=== PATIENT | male | born 1995 | race Two or more races ===

== ENCOUNTER 2017-10-26 10:51 | Emergency (ER) | payer SELFPAY ==
[2017-10-26] MEDS ORDERED: Sodium Chloride 0.9% 10 ML Syringe FLUSH PRN (11:00)
[2017-10-26] MEDS ORDERED: Morphine 4 MG/ML Syringe IVPUSH ONE (11:00)
[2017-10-26] MEDS ORDERED: Metoclopramide 10 MG/2 ML SDV IVPUSH ONE (11:00)
--- NOTE | 2017-10-26 11:06 | EDM.PDOC ---
ED HPI GENERAL MEDICAL PROBLEM - General Chief Complaint: Lower Extremity Injury/Pain Stated Complaint: LEFT FOOT INJURY Time Seen by Provider: 10/26/17 10:57 Source of Information: Reports: Other (co-worker) History Limitations: Reports: Language Barrier - History of Present Illness INITIAL COMMENTS - FREE TEXT/NARRATIVE: 22-year-old male presents for evaluation and treatment of injury to the bilateral feet. Reportedly the patient dropped a 4000 piece of farm equipment on his foot. Primarily complaining of pain to the left foot. Patient is from [place] does not speak much Bengali, language barrier present. Does not believe he's had a tetanus the last 10 years. Aside from the pain to the left foot he also has a nail avulsion to the right great toe. Denies any pain to the right foot. Reports good sensation. Location: Reports: Lower Extremity, Left, Lower Extremity, Right Left Feet Pain Score (Numeric/FACES): 9 - Related Data Allergies Allergy/AdvReac Type Severity Reaction Status Date / Time No Known Allergies Allergy Verified 10/26/17 11:04 Home Meds: Home Meds Acetaminophen/oxyCODONE [Percocet 325-5 MG] 1 tab PO Q6HR PRN #20 tab 10/26/17 [ Rx] Review of Systems - Review of Systems Review Of Systems: See Below Musculoskeletal: Reports: Foot Pain (left), Joint Swelling (left foot) Skin: Reports: Wound (right great toe) Neurological: Denies: Numbness, Tingling ED EXAM, GENERAL - Physical Exam Exam: See Below Exam Limited By: No Limitations General Appearance: Alert, WD/WN, Moderate Distress, Thin Respiratory/Chest: No Respiratory Distress Cardiovascular: Normal Peripheral Pulses, Regular Rate, Rhythm Peripheral Pulses: 2+: Posterior Tibial (L), Dorsalis Pedis (L), 3+: Posterior Tibial (R), Dorsalis Pedis (R) Extremities: Limited Range of Motion (ROM testing deferred to pain), Other ( significant swelling to the left foot, significant tenderness to palpation to the left foot; no pain with palpation of the right foot, right great toenail avulsion) Neurological: Alert, Oriented, Normal Cognition Psychiatric: Normal Affect, Normal Mood Skin Exam: Warm, Dry, Normal Color, Other (right great toe nail avulsion; abrasion to the left dorsal foot) ED TRAUMA EXTREMITY PROCEDURES - Splinting Left Lower Extremity Splint Site: left foot Pre-Procedure NV Status: Normal Post-Procedure NV Status: Normal Splint Material: Fiberglass Splint Design: Posterior Applied & Form Fitted By: Provider, Ventilator Specialist (LEONARD Vo) Provider Post-Splint Application NV Check: NV Status Normal, Good Position Complications: No - Additional/Other Procedure(s) Other (Free Text) Procedure(s): procedure: Right toenail removal indication: Trauma to right great toenail with avulsion verbal consent obtained procedure preformed by Britney Kerr PA-C Area was cleaned with sterile water and chlorahexadine. Digital block preformed with total of 7cc 1% lidocaine without epi. Right great toenail removed without complication. Patient tolerated well. Bacitracin applied, wrapped with a nonstick pad and Coban. Course - Vital Signs Last Recorded V/S: Last Vital Signs Temp 36.1 C 10/26/17 11:01 Pulse 87 10/26/17 11:01 Resp 20 10/26/17 11:01 BP 129/85 10/26/17 11:01 Pulse Ox 100 10/26/17 11:01 - Orders/Labs/Meds Meds: Medications Discontinued Medications Generic Name Dose Route Start Last Admin Trade Name Freq PRN Reason Stop Dose Admin Diphtheria/Tetanus/Acell Pertussis 0.5 ml 10/26/17 11:25 10/26/17 12:23 Adacel IM 10/26/17 11:26 0.5 ml .ONCE ONE Administration Lidocaine HCl 50 ml 10/26/17 13:16 10/26/17 14:40 Xylocaine 1% INJECT 10/26/17 13:17 50 ml ONETIME ONE Administration Metoclopramide HCl 5 mg 10/26/17 11:00 10/26/17 11:07 Reglan IVPUSH 10/26/17 11:01 5 mg ONETIME ONE Administration Morphine Sulfate 4 mg 10/26/17 11:00 10/26/17 11:07 Morphine IVPUSH 10/26/17 11:01 4 mg ONETIME ONE Administration Sodium Chloride 10 ml 10/26/17 11:00 10/26/17 11:07 Saline Flush FLUSH 10 ml ASDIRECTED PRN Administration Keep Vein Open - Radiology Interpretation Free Text/Narrative:: xray of the right foot shows no acute fractures or dislocations Left foot: Four views of the left foot were obtained. Comparison: No previous study. Fracture identified involving the base of the fifth metatarsal. Small chip fracture is noted off the lateral proximal edge of the cuboid bone. Soft tissue swelling is noted. No additional fracture is definitely seen. Impression: 1. Nondisplaced fracture within the base of the fifth metatarsal. 2. Small chip fracture off the corner cuboid bone laterally. 3. Soft tissue swelling. CT of the left foot without contrast impression per vrad: Nondisplaced intra- articular fracture of the cuboid extending from the central proximal to central distal articular surfaces. Small avulsion of the proximal lateral cubodi at the inferior calcaneocuboid articulation. Nondisplaced intra-articular fracture lateral base of the second metatarsal. Comminuted mildly distracted fractures of the proximal third metatarsal base. Mild the intra-articular (distal articulation) displaced fractures of the lateral cuneiform. Tiny dorsal lateral avulsions of the bases of the third and fourth metatarsals. Nondisplaced fractures of the base of the fifth metatarsal ("Granados fracture). No dislocation. - Re-Assessments/Exams Free Text/Narrative Re-Assessment/Exam: 10/26/17 15:18 Initial x-rays showed a Granados fracture of the left foot. Given his mechanism of injury and the amount of swelling is concern for additional fracture. Went ahead CT the foot. CT returned with multiple fractures of the left foot. Discussed the case with Dr. Luong, orthopedics electronic component processor at [facility] in [place]. Recommended a Granados type splint and follow-up with orthopedics next week. Attempted to make an appointment with Dr. Márquez in [place], however, due to the language barrier, They will contact him. His tetanus has been updated. Right toenail was removed by an Britney Kerr PA-C. Posterior slab splint applied by LEONARD Vo and myself. The patient tolerated these procedures well. There were no complications. Will discharge home at this time. Departure - Departure Time of Disposition: 15:19 Disposition: Home, Self-Care 01 Condition: Fair Clinical Impression: Nail avulsion, toe, Foot fracture, left - Discharge Information Prescriptions: Acetaminophen/oxyCODONE [Percocet 325-5 MG] 1 tab PO Q6HR PRN #20 tab PRN Reason: Pain Instructions: Cast or Splint Care, Adult Referrals: PCP,None [Primary Care Provider] - Raymond Márquez MD [Ordering Only Provider] - Forms: ED Department Discharge Additional Instructions: Follow-up with [facility] in [place]. Recommend Dr. Raymond Márquez. He will want to see you next week. They will contact you for an appointment. If you do not hear from them by tomorrow afternoon call [phone]. Please let them know that you in the ER for multiple fractures of her left foot and should be seen next week. He was given medication the ER that can affect his ability to drive and operate machinery. Do not drive or operate machinery within 12 hours of taking prescription narcotic pain medication. You may take Percocet 1-2 tabs every 4-6 hours as needed for severe pain. Do not drive or operate machinery within 12 hours of taking Percocet. Percocet can be habit-forming, recommend you take as few of these as needed to control your pain. Ice the foot frequently. ice The foot is much as you able to. Off the foot completely. Use your crutches at all time. When near water wrapped the splint with a bag or Saran wrap. Please return to the ER if your symptoms change or worsen
[2017-10-26] MEDS ORDERED: Diphtheria,Pertussis(Acell),Tetanus Vaccine 0.5 ML SDV IM ONE (11:25)
[2017-10-26] MEDS ORDERED: Lidocaine 1% 50 ML MDV INJECT ONE (13:16)
--- NOTE | 2017-10-27 07:36 | CR ---
CT right foot : Four views of the right foot were obtained. Joint spaces are maintained. No fracture or other bony abnormality is seen. Impression: 1. No abnormality is identified on right foot study. Diagnostic code #1
--- NOTE | 2017-10-27 07:36 | CR ---
Left foot: Four views of the left foot were obtained. Comparison: No previous study. Fracture identified involving the base of the fifth metatarsal. Small chip fracture is noted off the lateral proximal edge of the cuboid bone. Soft tissue swelling is noted. No additional fracture is definitely seen. Impression: 1. Nondisplaced fracture within the base of the fifth metatarsal. 2. Small chip fracture off the corner cuboid bone laterally. 3. Soft tissue swelling. Diagnostic code #3
--- NOTE | 2017-10-30 08:10 | CT ---
CT left foot Technique: Multiple axial sections through the left foot were obtained. Reconstructed coronal and sagittal images were obtained. Comparison: Previous left foot radiographic study performed on the same day (11: 03 AM). Findings: Fracture is identified within the base of the fifth metatarsal. Fracture noted within the body of the cuboid bone as well as a small chip fracture off the lateral cuboid bone. Larger fracture line within the cuboid bone measures about 1.8 mm. Several fractures are seen within the small chip fracture noted off the navicular bone in 2 [address]. Fracture is noted within the third cuneiform bone. Small displaced chip fracture is identified off the base of the second metatarsal. Small fracture identified off the base of the third metatarsal. No foot dislocation is seen. Diffuse soft tissue swelling is present. Impression: 1. Multiple fractures within the mid foot. Greatest displacement is about 1.8 mm. 2. Soft tissue swelling. Diagnostic code #3 I agree with preliminary report issued by [facility] ([facility] report finalized on , 1:42 PM Central Time) LIZETT
== END 2017-10-26 15:50 | disposition home or self-care (01) ==
LOC: JD.ED 10:51
DX: S92.355A Nondisplaced fracture of fifth metatarsal bone, left foot, initial encounter for closed fracture (principal); S92.212A Displaced fracture of cuboid bone of left foot, initial encounter for closed fracture; S91.201A Unspecified open wound of right great toe with damage to nail, initial encounter; W20.8XXA Other cause of strike by thrown, projected or falling object, initial encounter
CPT/HCPCS: 29515; 73630; 73700; 90471; 90715; 96374; 96375; 99284; J2270; J2765; J7050; 11730; 99283-25

== ENCOUNTER → 2017-11-16 | Day surgery (SDC) | payer OTHER ==
[~2017-11-16] MED LIST: Lactated Ringers 1,000 ML IV SCH; Lidocaine 1%/Sod Bicarbonate in NS 8.4% 1 ML Syringe IDERM PRN; Sodium Chloride 0.9% 10 ML Syringe FLUSH PRN
== END ==
LOC: JD.SDS 10:40
PROVIDERS: ATTEND Orthopaedic Surgery
DX: S93.325A Dislocation of tarsometatarsal joint of left foot, initial encounter (principal)
CPT/HCPCS: 36415; 80048; 85025; 87641; J7120

== ENCOUNTER 2017-11-22 06:53 | Day surgery (SDC) | payer OTHER ==
[2017-11-22] MEDS ORDERED: Bupivacaine 0.25% 30 ML SDV ONE (06:59)
[2017-11-22] MEDS ORDERED: fentaNYL 250 MCG/5 ML SDV ONE (07:09)
[2017-11-22] MEDS ORDERED: Lidocaine 1% 4 ML ONE (07:09)
[2017-11-22] MEDS ORDERED: Ondansetron 4 MG/2 ML SDV ONE (07:09)
[2017-11-22] MEDS ORDERED: Midazolam 1 MG/ML 2 ML SDV ONE (07:09)
[2017-11-22] MEDS ORDERED: Propofol 200 MG/20 ML SDV ONE (07:09)
--- NOTE | 2017-11-22 07:22 | PCM.PREANE ---
Preanesthetic Assessment - Anesthesia/Transfusion/Family Hx Anesthesia History: Prior Anesthesia Without Reaction Family History of Anesthesia Reaction: No Transfusion History: No Prior Transfusion(s) - Review of Systems General: No Symptoms Pulmonary: No Symptoms Cardiovascular: No Symptoms Gastrointestinal: No Symptoms Neurological: No Symptoms Other: Reports: None - Physical Assessment NPO Status Date: 11/21/17 NPO Status Time: 20:00 Pulse: 73 O2 Sat by Pulse Oximetry: 97 Respiratory Rate: 16 Blood Pressure: 125/80 Temperature: 98.2 F Height: 5 ft 7 in Weight: 66.6 kg ASA Class: 1 Mental Status: Alert & Oriented x3 Airway Class: Mallampati = 1 Dentition: Reports: Normal Dentition Thyro-Mental Finger Breadths: 3 Mouth Opening Finger Breadths: 3 ROM/Head Extension: Full Lungs: Clear to Auscultation, Normal Respiratory Effort Cardiovascular: Regular Rate, Regular Rhythm - Allergies Allergies/Adverse Reactions: Allergies Allergy/AdvReac Type Severity Reaction Status Date / Time No Known Allergies Allergy Verified 11/21/17 14:28 - Blood Blood Available: No - Acknowledgements Anesthesia Type Planned: General Anesthesia Pt an Appropriate Candidate for the Planned Anesthesia: Yes Alternatives and Risks of Anesthesia Discussed w Pt/Guardian: Yes Pt/Guardian Understands and Agrees with Anesthesia Plan: Yes PreAnesthesia Questionnaire - Past Health History Medical/Surgical History: Denies Medical/Surgical History HEENT History: Reports: None Cardiovascular History: Reports: None Respiratory History: Reports: None Gastrointestinal History: Reports: None Genitourinary History: Reports: None FINISHED CIGAR MAKER History: Reports: None Musculoskeletal History: Reports: None Neurological History: Reports: None Psychiatric History: Reports: None Endocrine/Metabolic History: Reports: None Hematologic History: Reports: None Immunologic History: Reports: None Oncologic (Cancer) History: Reports: None Dermatologic History: Reports: None - Past Surgical History Head Surgeries/Procedures: Reports: None HEENT Surgical History: Reports: Adenoidectomy, Naso-Sinus Surgery, Tonsillectomy Cardiovascular Surgical History: Reports: None Respiratory Surgical History: Reports: None GI Surgical History: Reports: None Female Surgical History: Reports: None Male Surgical History: Reports: None Endocrine Surgical History: Reports: None Neurological Surgical History: Reports: None Musculoskeletal Surgical History: Reports: None Oncologic Surgical History: Reports: None Dermatological Surgical History: Reports: None - SUBSTANCE USE Smoking Status *Q: Former Smoker Tobacco Use Within Last Twelve Months: No Second Hand Smoke Exposure: No Days Per Week of Alcohol Use: 0 Recreational Drug Use History: No - HOME MEDS Home Medications: Home Meds Acetaminophen/oxyCODONE [Percocet 325-5 MG] 1 tab PO Q6HR PRN #20 tab 10/26/17 [ Rx] - CURRENT (IN HOUSE) MEDS Current Meds: Current Medications Lactated Ringer's (Ringers, Lactated) 1,000 mls @ 125 mls/hr IV ASDIRECTED DENTON Lidocaine/Sodium Bicarbonate (Buffered Lidocaine 1% In Ns 8.4%) 0.25 ml IDERM ONETIME PRN PRN Reason: Prior to IV Start Sodium Chloride (Saline Flush) 10 ml FLUSH ASDIRECTED PRN PRN Reason: Keep Vein Open Discontinued Medications Bupivacaine HCl (Marcaine 0.25%) Confirm Administered Dose 30 ml .ROUTE .STK- MED ONE Stop: 11/22/17 07:00 Fentanyl (Sublimaze) Confirm Administered Dose 250 mcg .ROUTE .STK-MED ONE Stop: 11/22/17 07:10 Lidocaine HCl (Xylocaine-Mpf 1%) Confirm Administered Dose 4 mls @ as directed .ROUTE .STK-MED ONE Stop: 11/22/17 07:10 Midazolam HCl (Versed 1 Mg/Ml) Confirm Administered Dose 2 mg .ROUTE .STK-MED ONE Stop: 11/22/17 07:10 Ondansetron HCl (Zofran) Confirm Administered Dose 4 mg .ROUTE .STK-MED ONE Stop: 11/22/17 07:10 Propofol (Diprivan 20 Ml) Confirm Administered Dose 200 mg .ROUTE .STK-MED ONE Stop: 11/22/17 07:10
[2017-11-22] MEDS ORDERED: HYDROmorphone 0.5 MG/0.5 ML Syringe IVPUSH PRN (07:50)
[2017-11-22] MEDS ORDERED: Ondansetron 4 MG/2 ML SDV IVPUSH PRN (07:50)
[2017-11-22] MEDS ORDERED: fentaNYL 100 MCG/2 ML SDV IVPUSH PRN (07:50)
[2017-11-22] MEDS ORDERED: Dexamethasone 4 MG/ML SDV ONE (08:12)
[2017-11-22] MEDS ORDERED: ceFAZolin 1 GM Vial ONE (08:13)
[2017-11-22] MEDS ORDERED: HYDROmorphone 0.5 MG/0.5 ML Syringe ONE ×2 (08:14→09:33)
[2017-11-22] MEDS ORDERED: fentaNYL 100 MCG/2 ML SDV ONE (08:40)
[2017-11-22] MEDS ORDERED: Ketorolac 30 MG/ML SDV ONE (08:57)
[2017-11-22] MEDS ORDERED: Lactated Ringers 1,000 ML ONE (09:00)
--- NOTE | 2017-11-22 09:35 | PCM.POSTAN ---
POST ANESTHESIA ASSESSMENT - MENTAL STATUS Mental Status: Alert, Oriented - VITAL SIGNS Pulse Rate: 111 SaO2: 99 Resp Rate: 12 Blood Pressure: 168/102 - RESPIRATORY Respiratory Status: Respiratory Rate WNL, Airway Patent, O2 Saturation Stable, Supplemental Oxygen - CARDIOVASCULAR CV Status: Pulse Rate WNL, Elevated Blood Pressure - GASTROINTESTINAL GI Status: No Symptoms - PAIN Pain Score: 3 (medicated) - POST OP HYDRATION Hydration Status: Adequate & Stable
[2017-11-22] MEDS ORDERED: Acetaminophen/HYDROcodone 325-5 MG Tab PO PRN (10:18)
--- NOTE | 2017-11-22 10:31 | CR ---
Left foot: 17 fluoroscopic spot views were obtained utilizing C-arm device. Comparison: Previous CT foot exam of 10/26/17 and plain film foot exam of 10/26/17. Study shows fixation of previous fractures. Screws are seen affixing the base of the first through third metatarsals and to the adjacent cuneiform bones. Oblique screw within the third metatarsal crosses into the second cuneiform bone. Fluoroscopy time given as 96.2 seconds. Impression: 1. Placement of screws affixing previous fractures. Diagnostic code #2
--- NOTE | 2017-11-22 11:13 | PCM48HPAN ---
Post Anesthesia Note - EVALUATION WITHIN 48HRS OF ANESTHETIC Vital Signs in Normal Range: Yes Patient Participated in Evaluation: Yes Respiratory Function Stable: Yes Airway Patent: Yes Cardiovascular Function Stable: Yes Hydration Status Stable: Yes Pain Control Satisfactory: Yes Nausea and Vomiting Control Satisfactory: Yes Mental Status Recovered: Yes (rests- complains of some pain)
--- NOTE | 2017-11-27 17:30 | PCM.OPNOTE ---
- General Post-Op/Procedure Note Date of Surgery/Procedure: 11/22/17 Operative Procedure(s): open reduction internal fixation left first, second and third tarsometatarsal joints Pre Op Diagnosis: left foot LisFranc injury Post-Op Diagnosis: Same Anesthesia Technique: General LMA, Local Primary Surgeon: Alexandr Dale Anesthesia Provider: Radha Rodriguez Language Specialist: Bhupinder Medina EBYuli in mLs: 10 Complications: None Condition: Good
--- NOTE | 2017-11-29 07:59 | OR ---
DATE OF OPERATION: 11/22/2017 SURGEON: Alexandr Dale MD OPERATION PERFORMED: Open reduction and internal fixation, left first, second and third tarsometatarsal joint. PREOPERATIVE DIAGNOSIS: Left foot Lisfranc injury. POSTOPERATIVE DIAGNOSIS: Left foot Lisfranc injury. ANESTHESIA: General LMA with local. ANESTHESIA PROVIDER: Radha Rodriguez CRNA. MICROFILMING DOCUMENT PREPARER: Bhupinder Medina MD, resident. ESTIMATED BLOOD LOSS: 10 mL. COMPLICATIONS: None. CONDITION: Stable. DESCRIPTION OF PROCEDURE: The patient was identified in the preoperative holding area. Proper site was marked and identified by the surgeon. The patient was taken back to the operating theater where after adequate anesthesia, the patient's left lower extremity had a nonsterile tourniquet applied and was then sterilely prepped and draped in the usual sterile fashion. OR time-out was performed. The patient received 2 g IV Ancef. At this time, the left lower extremity was exsanguinated. Tourniquet was insufflated to 250 mmHg. Standard incision was made centered between the first and second ray near the tarsometatarsal joints. This was taken down and blunt dissection elevated the extensor digitorum brevis off the bone and protected the neurovascular bundles. At this time, the first tarsometatarsal joint was identified as well as the second tarsometatarsal joint. The first tarsometatarsal joint was then reduced. A 3.5 over drill was then used and then a 2.5 drill bit and a 3.5 cortical screw was then placed from the first metatarsal into the medial cuneiform. Attention was turned to the second tarsometatarsal joint. At this time, a small incision was made medially over the medial cuneiform and a [id number] reduction clamp was placed over the medial cuneiform to the second metatarsal to reduce the Lisfranc joint. From the medial cuneiform to the second metatarsal, 3.5 over drill bit was used in the medial cuneiform and 2.5 drill bit was used at the base of the second metatarsal and 3.5 cortical screw was placed in lag by intent fashion. At this time, it was noted to be good reduction of the second tarsometatarsal joint. Attention was then turned to the third tarsometatarsal joint. An incision was made directly in line with the fourth ray. Blunt dissection was taken down to the third tarsometatarsal joint. Capsulotomy was performed. At this time, reduction was down to the third tarsometatarsal joint. It was noted to be grossly unstable compared to the first 2. At this time, two 3.5 cortical screws were placed. One straight from the third metatarsal into the lateral cuneiform and one from the third metatarsal into the middle cuneiform. There was found to be adequate reduction on both AP, lateral, and oblique views of both the first, second and third tarsometatarsal joints at this time with good stability. Adequate saline was then irrigated through all wounds, 3-0 Vicryl was used subcutaneously and Monocryl was used for the skin. The patient was placed in a sterile soft dressing and a posterior slab splint and was sent to PACU in stable condition. LISANDRO /[id number]
== END 2017-11-22 12:25 | disposition home or self-care (01) ==
LOC: JD.SDS 06:53
PROVIDERS: ATTEND Orthopaedic Surgery
DX: S93.325A Dislocation of tarsometatarsal joint of left foot, initial encounter (principal); Z79.899 Other long term (current) drug therapy; Z87.891 Personal history of nicotine dependence; Y99.0 Civilian activity done for income or pay; Y92.89 Other specified places as the place of occurrence of the external cause
CPT/HCPCS: 28615; 76000; A9270; C1713; J0690; J1100; J1170; J1885; J2250; J2405; J3010; J3490; J7120; 01480; J2704